=== PATIENT | female | born 1945 | race Caucasian/White ===

== ENCOUNTER → 2017-04-09 | Outpatient (CLI) | payer MEDICARE, OTHER ==
[2017-04-09 15:27] LABS: Sodium, Urine 95 mmol/L (20-110)
== END ==
LOC: LAB SRC 07:15 → LAB SHORT 07:15 → LAB FUT 04-08 11:35
PROVIDERS: Internal Medicine Endocrinology, Diabetes & Metabolism
DX: I10 Essential (primary) hypertension (principal); E24.1 Nelson's syndrome
CPT/HCPCS: 81050; 82088; 84300

== ENCOUNTER 2017-08-29 11:42 | Day surgery (SDC) | payer MEDICARE, OTHER | END 2017-08-29 22:43 | disposition home or self-care (01) | LOC: MOI MAM 11:42 | PROC: 0HBU3ZX Excision of Left Breast, Percutaneous Approach, Diagnostic (ICD-10-PCS; principal; 2017-08-29) | DX: D24.2 Benign neoplasm of left breast (principal); N60.92 Unspecified benign mammary dysplasia of left breast | CPT/HCPCS: 19081 ==

== ENCOUNTER 2019-07-08 06:20 | Day surgery (SDC) | payer MEDICARE, OTHER ==
[~2019-07-08] VITALS: Ht 165.1 cm; Wt 77.8 kg
[~2019-07-08 06:20] MED LIST: Aspir 8181 MG; BASAGLAR K100 UNIT/1; CARV25; LOSA50; METF500; OMEP20ER; SPIR25; Simvastatin40 MG; TRULICITY0.75 MG/0.
== END 2019-07-08 08:50 | disposition home or self-care (01) ==
LOC: ORSCSDS 06:20
PROVIDERS: Orthopaedic Surgery
PROC: 0LN80ZZ Release Left Hand Tendon, Open Approach (ICD-10-PCS; principal; 2019-07-08 07:30)
PROC: 01N50ZZ Release Median Nerve, Open Approach (ICD-10-PCS; principal; 2019-07-08 07:30)
DX: G56.03 Carpal tunnel syndrome, bilateral upper limbs (principal); M65.332 Trigger finger, left middle finger; E11.9 Type 2 diabetes mellitus without complications; I10 Essential (primary) hypertension; E78.5 Hyperlipidemia, unspecified; G47.33 Obstructive sleep apnea (adult) (pediatric); Z79.82 Long term (current) use of aspirin; Z79.84 Long term (current) use of oral hypoglycemic drugs; Z79.899 Other long term (current) drug therapy; Z87.891 Personal history of nicotine dependence
CPT/HCPCS: 82947; J0690; J1100; J2250; J2405; J2704; J2795; J3010; J7120

== ENCOUNTER → 2021-09-04 | Outpatient (CLI) | payer MEDICARE, OTHER ==
[2021-09-05 10:51] LABS: Stool Occult Bld Immuno 1 Positive (NEGATIVE)
== END | disposition home or self-care (01) ==
LOC: LAB SHORT 12:50 → LAB 12:50
PROVIDERS: Nurse Practitioner Family
DX: Z12.11 Encounter for screening for malignant neoplasm of colon (principal); Z12.12 Encounter for screening for malignant neoplasm of rectum
CPT/HCPCS: G0328

== ENCOUNTER 2022-12-19 08:27 | Day surgery (SDC) | payer MEDICARE, OTHER ==
[~2022-12-19] VITALS: Ht 165.1 cm; Wt 69.7 kg
[~2022-12-19 08:27] MED LIST changes: -BASAGLAR K100 UNIT/1; +BASAGLAR K100 UNIT/1 SC; -CARV25; +CARV25 PO; +Flonase 0.05% N16 GM; +LOSA50 PO; -METF500; +METF500 PO; -OMEP20ER; +OMEP20ER PO; +SPIR25 PO; -Simvastatin40 MG; +Simvastatin40 MG PO; -TRULICITY0.75 MG/0.; +TRULICITY1.5 MG/0.1 SC
[2022-12-19] MEDS ORDERED: BASAGLAR K100 UNIT/1 SC (09:58)
[2022-12-19] MEDS ORDERED: METF500 PO (09:59)
--- NOTE | 2022-12-19 10:57 | NUR ---
12/19/22 Bob7 Mari Baez A PILLOW UNDER HEAD AND KNEES, BOTH ARMS SECURED ON PADDED ARM BOARD, SEAT BELT IN PLACE AND SECURE.
[2022-12-19 12:43] VITALS: BP 123/64
--- NOTE | 2022-12-19 12:59 | NUR ---
12/19/22 1259 SUNIL SAMS DTR AND SISTER IN AT BEDSIDE. PT IN RECLINER.
== END 2022-12-19 13:50 | disposition home or self-care (01) ==
LOC: ORSCSDS 08:27
PROVIDERS: Surgery
PROC: 0HBT0ZZ Excision of Right Breast, Open Approach (ICD-10-PCS; principal; 2022-12-19 10:30)
DX: C50.211 Malignant neoplasm of upper-inner quadrant of right female breast (principal); I10 Essential (primary) hypertension; E11.9 Type 2 diabetes mellitus without complications; G47.33 Obstructive sleep apnea (adult) (pediatric); K21.9 Gastro-esophageal reflux disease without esophagitis; Z79.899 Other long term (current) drug therapy; Z79.84 Long term (current) use of oral hypoglycemic drugs; Z79.4 Long term (current) use of insulin
CPT/HCPCS: 38792; 82947; 88305; 88307; A9270; A9520; J0690; J1100; J1885; J2405; J2704; J2795; J3010; J7120; Q9968

== ENCOUNTER 2023-01-25 17:23 | Emergency (ER) | payer MEDICARE, OTHER ==
[~2023-01-25] VITALS: Ht 165.1 cm; Wt 67.1 kg
[2023-01-25 18:08] LABS: BASOPHILS ABSOLUTE AUTO 0.01 K/mm3 (0.00-0.23); BASOPHILS PERCENT AUTO 0 % (0-2); EOSINOPHILS ABSOLUTE AUTO 0.36 K/mm3 (0.00-0.68); EOSINOPHILS PERCENT AUTO 5 % (0-6); Hematocrit 32.3 % (33.0-51.0); Hemoglobin 10.6 g/dL (11.5-16.0); IMMATURE GRAN ABSOLUTE AUTO 0.02 K/mm3 (0.00-0.10); IMMATURE GRAN PERCENT AUTO 0 % (0-1); LYMPHOCYTES ABSOLUTE AUTO 1.68 K/mm3 (0.84-5.20); LYMPHOCYTES PERCENT AUTO 23 % (21-46); MONOCYTES ABSOLUTE AUTO 0.49 K/mm3 (0.16-1.47); MONOCYTES PERCENT AUTO 7 % (4-13); Mean Corpuscular HGB 29.5 pg (26.0-34.0); Mean Corpuscular HGB Conc 32.8 g/dL (31.5-36.5); Mean Corpuscular Volume 90 fL (80-100); Mean Platelet Volume 8.8 fL (9.1-12.4); NEUTROPHILS ABSOLUTE AUTO 4.63 K/mm3 (1.96-9.15); NEUTROPHILS PERCENT AUTO 64 % (41-73); Platelet Count 236 K/mm3 (150-400); RDW Coefficient Variation 12.6 % (11.7-14.2); RDW Standard Deviation 41.4 fL (35.1-46.3); Red Blood Cell Count 3.59 M/mm3 (3.80-5.20); White Blood Cell Count 7.19 K/mm3 (4.00-11.30)
[2023-01-25 18:46] LABS: Albumin, Blood 3.5 g/dL (3.4-5.0); Albumin/Globulin Ratio 0.9 (0.8-1.8); Bilirubin, Total 0.3 mg/dL (0.1-1.0); Bun/Creatinine Ratio 15.3 (12.0-20.0); Calcium, Blood 8.8 mg/dL (8.5-10.1); Creatinine, Blood 1.57 mg/dL (0.40-1.00); Globulin, Blood 3.8 g/dL (2.2-4.0); Total Protein, Blood 7.3 g/dL (6.4-8.2)
[2023-01-25 21:43] VITALS: BP 151/69
== END 2023-01-25 21:44 | disposition home or self-care (01) ==
LOC: ER 17:23
PROVIDERS: Emergency Medicine
DX: L76.34 Postprocedural seroma of skin and subcutaneous tissue following other procedure (principal); C50.911 Malignant neoplasm of unspecified site of right female breast; E11.9 Type 2 diabetes mellitus without complications; I10 Essential (primary) hypertension; E78.5 Hyperlipidemia, unspecified; Z88.8 Allergy status to other drugs, medicaments and biological substances; Z79.899 Other long term (current) drug therapy; Z79.4 Long term (current) use of insulin; Z79.84 Long term (current) use of oral hypoglycemic drugs
CPT/HCPCS: 80053; 85025; 99283

== ENCOUNTER 2023-02-20 04:46 | Day surgery (SDC) | payer MEDICARE, OTHER | END 2023-02-20 22:52 | disposition home or self-care (01) | LOC: WOUND 04:46 | DX: T81.31XS Disruption of external operation (surgical) wound, not elsewhere classified, sequela (principal); L03.313 Cellulitis of chest wall; Z90.11 Acquired absence of right breast and nipple; C50.911 Malignant neoplasm of unspecified site of right female breast; E08.39 Diabetes mellitus due to underlying condition with other diabetic ophthalmic complication; Z85.3 Personal history of malignant neoplasm of breast; Y83.8 Other surgical procedures as the cause of abnormal reaction of the patient, or of later complication, without mention of misadventure at the time of the procedure | CPT/HCPCS: A9270 ==

== ENCOUNTER 2023-02-28 02:25 | Day surgery (SDC) | payer MEDICARE, OTHER | END 2023-02-28 22:49 | disposition home or self-care (01) | LOC: WOUND 02:25 | DX: T81.31XS Disruption of external operation (surgical) wound, not elsewhere classified, sequela (principal); L03.313 Cellulitis of chest wall; C50.911 Malignant neoplasm of unspecified site of right female breast; E11.39 Type 2 diabetes mellitus with other diabetic ophthalmic complication; Z85.3 Personal history of malignant neoplasm of breast; Z90.11 Acquired absence of right breast and nipple | CPT/HCPCS: G0463 ==

== ENCOUNTER 2023-03-03 09:32 | Day surgery (SDC) | payer MEDICARE, OTHER | END 2023-03-03 23:01 | disposition home or self-care (01) | LOC: WOUND 09:32 | DX: T81.31XS Disruption of external operation (surgical) wound, not elsewhere classified, sequela (principal); L03.313 Cellulitis of chest wall; Z90.11 Acquired absence of right breast and nipple; Z85.3 Personal history of malignant neoplasm of breast; Y83.8 Other surgical procedures as the cause of abnormal reaction of the patient, or of later complication, without mention of misadventure at the time of the procedure | CPT/HCPCS: A9270 ==

== ENCOUNTER 2023-03-07 01:14 | Day surgery (SDC) | payer MEDICARE, OTHER | END 2023-03-07 22:52 | disposition home or self-care (01) | LOC: WOUND 01:14 | DX: T81.31XD Disruption of external operation (surgical) wound, not elsewhere classified, subsequent encounter (principal); L03.313 Cellulitis of chest wall; Z90.11 Acquired absence of right breast and nipple; C50.911 Malignant neoplasm of unspecified site of right female breast; E11.39 Type 2 diabetes mellitus with other diabetic ophthalmic complication; Z85.3 Personal history of malignant neoplasm of breast | CPT/HCPCS: A9270 ==

== ENCOUNTER 2023-03-10 01:57 | Day surgery (SDC) | payer MEDICARE, OTHER | END 2023-03-10 22:55 | disposition home or self-care (01) | LOC: WOUND 01:57 | DX: L03.313 Cellulitis of chest wall (principal); T81.31XS Disruption of external operation (surgical) wound, not elsewhere classified, sequela; Z90.11 Acquired absence of right breast and nipple; E08.39 Diabetes mellitus due to underlying condition with other diabetic ophthalmic complication; Z85.3 Personal history of malignant neoplasm of breast | CPT/HCPCS: G0463 ==

== ENCOUNTER 2023-03-14 00:25 | Day surgery (SDC) | payer MEDICARE, OTHER | END 2023-03-14 23:44 | disposition home or self-care (01) | LOC: WOUND | DX: T81.31XD Disruption of external operation (surgical) wound, not elsewhere classified, subsequent encounter (principal); L03.113 Cellulitis of right upper limb; Z90.11 Acquired absence of right breast and nipple; C50.911 Malignant neoplasm of unspecified site of right female breast; E08.39 Diabetes mellitus due to underlying condition with other diabetic ophthalmic complication; Z85.3 Personal history of malignant neoplasm of breast | CPT/HCPCS: G0463 ==

== ENCOUNTER 2023-03-21 01:19 | Day surgery (SDC) | payer MEDICARE, OTHER | END 2023-03-21 22:51 | disposition home or self-care (01) | LOC: WOUND 01:19 | DX: T81.31XS Disruption of external operation (surgical) wound, not elsewhere classified, sequela (principal); E11.9 Type 2 diabetes mellitus without complications; L03.313 Cellulitis of chest wall; Z85.3 Personal history of malignant neoplasm of breast; Z90.11 Acquired absence of right breast and nipple; Y83.8 Other surgical procedures as the cause of abnormal reaction of the patient, or of later complication, without mention of misadventure at the time of the procedure | CPT/HCPCS: G0463 ==

== ENCOUNTER → 2023-03-27 | Outpatient (CLI) | payer MEDICARE, OTHER ==
[2023-03-27 16:30] LABS: Percent Saturation 14.1 % (15.0-50.0)
== END ==
LOC: LAB 14:17 → LAB SHORT 14:17
PROVIDERS: Nurse Practitioner
DX: D64.9 Anemia, unspecified (principal); E53.8 Deficiency of other specified B group vitamins
CPT/HCPCS: 82607; 82728; 82746; 83540; 83550

== ENCOUNTER 2023-03-28 00:40 | Day surgery (SDC) | payer MEDICARE, OTHER | END 2023-03-28 23:08 | disposition home or self-care (01) | LOC: WOUND 00:40 | DX: T81.31XS Disruption of external operation (surgical) wound, not elsewhere classified, sequela (principal); L03.313 Cellulitis of chest wall; C50.911 Malignant neoplasm of unspecified site of right female breast; E11.39 Type 2 diabetes mellitus with other diabetic ophthalmic complication; Z85.3 Personal history of malignant neoplasm of breast; Z90.11 Acquired absence of right breast and nipple; Y83.8 Other surgical procedures as the cause of abnormal reaction of the patient, or of later complication, without mention of misadventure at the time of the procedure | CPT/HCPCS: G0463 ==

== ENCOUNTER 2023-04-04 01:24 | Day surgery (SDC) | payer MEDICARE, OTHER | END 2023-04-04 23:05 | disposition home or self-care (01) | LOC: WOUND 01:24 | DX: T81.31XS Disruption of external operation (surgical) wound, not elsewhere classified, sequela (principal); L03.313 Cellulitis of chest wall; C50.911 Malignant neoplasm of unspecified site of right female breast; E08.39 Diabetes mellitus due to underlying condition with other diabetic ophthalmic complication; Y83.8 Other surgical procedures as the cause of abnormal reaction of the patient, or of later complication, without mention of misadventure at the time of the procedure; Z85.3 Personal history of malignant neoplasm of breast; Z90.11 Acquired absence of right breast and nipple | CPT/HCPCS: G0463 ==

== ENCOUNTER 2023-06-13 01:56 | Day surgery (SDC) | payer MEDICARE, OTHER | END 2023-06-14 23:03 | disposition home or self-care (01) | LOC: WOUND 01:56 | DX: T81.31XS Disruption of external operation (surgical) wound, not elsewhere classified, sequela (principal); L03.313 Cellulitis of chest wall; C50.911 Malignant neoplasm of unspecified site of right female breast; E08.39 Diabetes mellitus due to underlying condition with other diabetic ophthalmic complication; Z90.11 Acquired absence of right breast and nipple; Z85.3 Personal history of malignant neoplasm of breast; Y83.8 Other surgical procedures as the cause of abnormal reaction of the patient, or of later complication, without mention of misadventure at the time of the procedure | CPT/HCPCS: A6213; G0463 ==

== ENCOUNTER 2023-06-27 05:10 | Day surgery (SDC) | payer MEDICARE, OTHER | END 2023-06-27 22:41 | disposition home or self-care (01) | LOC: WOUND 05:10 | DX: T81.31XS Disruption of external operation (surgical) wound, not elsewhere classified, sequela (principal); E11.9 Type 2 diabetes mellitus without complications; L03.313 Cellulitis of chest wall; C50.911 Malignant neoplasm of unspecified site of right female breast; Z85.3 Personal history of malignant neoplasm of breast; Z90.11 Acquired absence of right breast and nipple; Y83.8 Other surgical procedures as the cause of abnormal reaction of the patient, or of later complication, without mention of misadventure at the time of the procedure ==

== ENCOUNTER 2023-07-18 03:26 | Day surgery (SDC) | payer MEDICARE, OTHER | END 2023-07-18 23:04 | disposition home or self-care (01) | LOC: WOUND | DX: T81.31XS Disruption of external operation (surgical) wound, not elsewhere classified, sequela (principal); L03.313 Cellulitis of chest wall; Z90.11 Acquired absence of right breast and nipple; C50.911 Malignant neoplasm of unspecified site of right female breast; E11.39 Type 2 diabetes mellitus with other diabetic ophthalmic complication; Z85.3 Personal history of malignant neoplasm of breast; C50.919 Malignant neoplasm of unspecified site of unspecified female breast; Z79.899 Other long term (current) drug therapy; K59.00 Constipation, unspecified; E80.6 Other disorders of bilirubin metabolism; R74.9 Abnormal serum enzyme level, unspecified; K76.0 Fatty (change of) liver, not elsewhere classified; K76.89 Other specified diseases of liver; R16.1 Splenomegaly, not elsewhere classified; Z90.49 Acquired absence of other specified parts of digestive tract | CPT/HCPCS: 36415; 76700; 80053; 84439; 84443; 84481; 85025; A6213; G0463 ==

== ENCOUNTER 2023-08-15 03:15 | Day surgery (SDC) | payer MEDICARE, OTHER | END 2023-08-15 23:12 | disposition home or self-care (01) | LOC: WOUND | DX: T81.31XD Disruption of external operation (surgical) wound, not elsewhere classified, subsequent encounter (principal); L03.313 Cellulitis of chest wall; C50.911 Malignant neoplasm of unspecified site of right female breast; E08.39 Diabetes mellitus due to underlying condition with other diabetic ophthalmic complication; Z85.3 Personal history of malignant neoplasm of breast; Z90.11 Acquired absence of right breast and nipple; Y83.8 Other surgical procedures as the cause of abnormal reaction of the patient, or of later complication, without mention of misadventure at the time of the procedure | CPT/HCPCS: A6213; G0463 ==

== ENCOUNTER 2023-08-22 02:20 | Day surgery (SDC) | payer MEDICARE, OTHER | END 2023-08-22 23:15 | disposition home or self-care (01) | LOC: WOUND 02:20 | DX: T81.31XD Disruption of external operation (surgical) wound, not elsewhere classified, subsequent encounter (principal); E11.9 Type 2 diabetes mellitus without complications; L03.313 Cellulitis of chest wall; E11.39 Type 2 diabetes mellitus with other diabetic ophthalmic complication; Z85.3 Personal history of malignant neoplasm of breast; Z90.11 Acquired absence of right breast and nipple; Y83.8 Other surgical procedures as the cause of abnormal reaction of the patient, or of later complication, without mention of misadventure at the time of the procedure | CPT/HCPCS: G0463 ==

== ENCOUNTER 2023-08-29 02:48 | Day surgery (SDC) | payer MEDICARE, OTHER | END 2023-08-29 22:40 | disposition home or self-care (01) | LOC: WOUND 02:48 | DX: T81.31XD Disruption of external operation (surgical) wound, not elsewhere classified, subsequent encounter (principal); E11.9 Type 2 diabetes mellitus without complications; L03.313 Cellulitis of chest wall; C50.911 Malignant neoplasm of unspecified site of right female breast; Z85.3 Personal history of malignant neoplasm of breast; Z90.11 Acquired absence of right breast and nipple; Y83.8 Other surgical procedures as the cause of abnormal reaction of the patient, or of later complication, without mention of misadventure at the time of the procedure | CPT/HCPCS: G0463 ==

== ENCOUNTER 2023-09-12 01:55 | Day surgery (SDC) | payer MEDICARE, OTHER | END 2023-09-12 23:00 | disposition home or self-care (01) | LOC: WOUND 01:55 | DX: T81.31XD Disruption of external operation (surgical) wound, not elsewhere classified, subsequent encounter (principal); L03.313 Cellulitis of chest wall; C50.911 Malignant neoplasm of unspecified site of right female breast; Z90.11 Acquired absence of right breast and nipple; E08.39 Diabetes mellitus due to underlying condition with other diabetic ophthalmic complication | CPT/HCPCS: G0463 ==

== ENCOUNTER 2023-10-03 03:46 | Day surgery (SDC) | payer MEDICARE, OTHER | END 2023-10-03 22:39 | disposition home or self-care (01) | LOC: WOUND 03:46 | DX: T81.31XS Disruption of external operation (surgical) wound, not elsewhere classified, sequela (principal); L03.313 Cellulitis of chest wall; C50.911 Malignant neoplasm of unspecified site of right female breast; E08.39 Diabetes mellitus due to underlying condition with other diabetic ophthalmic complication; Z85.3 Personal history of malignant neoplasm of breast; Z90.11 Acquired absence of right breast and nipple; Y83.8 Other surgical procedures as the cause of abnormal reaction of the patient, or of later complication, without mention of misadventure at the time of the procedure | CPT/HCPCS: A6196; G0463 ==

== ENCOUNTER 2023-10-24 02:01 | Day surgery (SDC) | payer MEDICARE, OTHER | END 2023-10-24 23:30 | disposition home or self-care (01) | LOC: WOUND 02:01 | DX: T81.31XD Disruption of external operation (surgical) wound, not elsewhere classified, subsequent encounter (principal); Y83.8 Other surgical procedures as the cause of abnormal reaction of the patient, or of later complication, without mention of misadventure at the time of the procedure; L03.313 Cellulitis of chest wall; C50.911 Malignant neoplasm of unspecified site of right female breast; E08.39 Diabetes mellitus due to underlying condition with other diabetic ophthalmic complication; Z90.11 Acquired absence of right breast and nipple; Z85.3 Personal history of malignant neoplasm of breast | CPT/HCPCS: A6213; G0463 ==

== ENCOUNTER 2023-11-21 01:27 | Day surgery (SDC) | payer MEDICARE, OTHER | END 2023-11-22 02:58 | disposition home or self-care (01) | LOC: WOUND 01:27 | DX: T81.31XS Disruption of external operation (surgical) wound, not elsewhere classified, sequela (principal); I10 Essential (primary) hypertension; Z90.11 Acquired absence of right breast and nipple; Z85.3 Personal history of malignant neoplasm of breast | CPT/HCPCS: G0463 ==

== ENCOUNTER 2023-12-12 03:00 | Day surgery (SDC) | payer MEDICARE, OTHER | END 2023-12-12 23:33 | disposition home or self-care (01) | LOC: WOUND 03:00 | DX: T81.31XD Disruption of external operation (surgical) wound, not elsewhere classified, subsequent encounter (principal); L03.313 Cellulitis of chest wall; E08.39 Diabetes mellitus due to underlying condition with other diabetic ophthalmic complication; Z90.11 Acquired absence of right breast and nipple; Z85.3 Personal history of malignant neoplasm of breast; Y83.8 Other surgical procedures as the cause of abnormal reaction of the patient, or of later complication, without mention of misadventure at the time of the procedure | CPT/HCPCS: G0463 ==

== ENCOUNTER 2023-12-26 03:48 | Day surgery (SDC) | payer MEDICARE, OTHER | END 2023-12-27 03:00 | disposition home or self-care (01) | LOC: WOUND 03:48 | DX: T81.31XA Disruption of external operation (surgical) wound, not elsewhere classified, initial encounter (principal); L03.313 Cellulitis of chest wall; Z90.11 Acquired absence of right breast and nipple; C50.811 Malignant neoplasm of overlapping sites of right female breast; E08.39 Diabetes mellitus due to underlying condition with other diabetic ophthalmic complication; Z85.3 Personal history of malignant neoplasm of breast | CPT/HCPCS: G0463 ==

== ENCOUNTER 2024-01-23 05:48 | Day surgery (SDC) | payer MEDICARE, OTHER | END 2024-01-23 23:00 | disposition home or self-care (01) | LOC: WOUND 05:48 | DX: T81.31XD Disruption of external operation (surgical) wound, not elsewhere classified, subsequent encounter (principal); E11.9 Type 2 diabetes mellitus without complications; Z90.11 Acquired absence of right breast and nipple; Z85.3 Personal history of malignant neoplasm of breast | CPT/HCPCS: G0463 ==

== ENCOUNTER 2024-01-25 19:32 | Emergency (ER) | payer OTHER, MEDICARE ==
[~2024-01-25] VITALS: Ht 165.1 cm; Wt 69.0 kg
[2024-01-25 19:53] VITALS: BP 181/76
== END 2024-01-25 19:59 | disposition home or self-care (01) ==
LOC: ER 19:32
DX: Z04.1 Encounter for examination and observation following transport accident (principal); I10 Essential (primary) hypertension; E11.9 Type 2 diabetes mellitus without complications; G47.33 Obstructive sleep apnea (adult) (pediatric); E78.5 Hyperlipidemia, unspecified; Z88.8 Allergy status to other drugs, medicaments and biological substances; Z79.84 Long term (current) use of oral hypoglycemic drugs; Z79.85 Long-term (current) use of injectable non-insulin antidiabetic drugs; Z79.4 Long term (current) use of insulin; Z79.899 Other long term (current) drug therapy; V40.9XXA Unspecified car occupant injured in collision with pedestrian or animal in traffic accident, initial encounter
CPT/HCPCS: 99283

== ENCOUNTER 2024-05-04 07:01 | Day surgery (SDC) | payer MEDICARE, OTHER ==
[~2024-05-04] VITALS: Ht 165.1 cm; Wt 67.0 kg
--- NOTE | 2024-05-04 08:02 | NUR ---
05/04/[address] MESSAGED ABOUT GLP1 TAKEN 5 DAYS AGO/ PT HOLDING TO PROCEED BASED ON PLICY OF 7DAYS OFF GLP1. IV NOT STARTED UNTIL DECISION IS MADE. PT IS UPSET AND SAYS THAT NO ON E TOLD HER AND SHE WONT COME BACK TO DO PROCEDURE AGAIN
[2024-05-04] MEDS ORDERED: propofoL 50 ML IV ONE ×2 (08:10→09:56)
[2024-05-04] MEDS ORDERED: Lactated Ringer's 1,000 ML IV ONE ×3 (08:10→09:16)
[2024-05-04] MEDS ORDERED: Ondansetron HCl 2 MG / ML 2ML Vial ONE (09:56)
[2024-05-04] MEDS ORDERED: Glycopyrrolate 0.2 MG/ML 1MLVIAL ONE (09:56)
[2024-05-04 10:14] VITALS: BP 135/96
== END 2024-05-04 10:22 | disposition home or self-care (01) ==
LOC: ORSCSDS 07:01
PROVIDERS: Surgery
PROC: 0DBL8ZX Excision of Transverse Colon, Via Natural or Artificial Opening Endoscopic, Diagnostic (ICD-10-PCS; principal; 2024-05-04 08:30)
PROC: 3E0H8KZ Introduction of Other Diagnostic Substance into Lower GI, Via Natural or Artificial Opening Endoscopic (ICD-10-PCS; principal; 2024-05-04 08:30)
PROC: 0DBK8ZX Excision of Ascending Colon, Via Natural or Artificial Opening Endoscopic, Diagnostic (ICD-10-PCS; principal; 2024-05-04 08:30)
PROC: 0DBM8ZX Excision of Descending Colon, Via Natural or Artificial Opening Endoscopic, Diagnostic (ICD-10-PCS; principal; 2024-05-04 08:30)
DX: Z12.11 Encounter for screening for malignant neoplasm of colon (principal); Z80.0 Family history of malignant neoplasm of digestive organs; Z86.0100 Personal history of colon polyps, unspecified; R19.5 Other fecal abnormalities; D12.3 Benign neoplasm of transverse colon; D12.2 Benign neoplasm of ascending colon; D12.4 Benign neoplasm of descending colon; Z85.3 Personal history of malignant neoplasm of breast; Z79.899 Other long term (current) drug therapy; E11.9 Type 2 diabetes mellitus without complications; G47.33 Obstructive sleep apnea (adult) (pediatric); I10 Essential (primary) hypertension; E78.5 Hyperlipidemia, unspecified; Z87.891 Personal history of nicotine dependence; Z79.85 Long-term (current) use of injectable non-insulin antidiabetic drugs; Z79.84 Long term (current) use of oral hypoglycemic drugs; Z79.4 Long term (current) use of insulin
CPT/HCPCS: 82947; 88305; J2405; J2704; J7120

== ENCOUNTER → 2025-01-17 | Outpatient (CLI) | payer MEDICARE ==
[2025-01-17 14:52] LABS: Stool Occult Bld Immuno 1 Positive (NEGATIVE)
== END ==
LOC: LAB 09:00 → LAB SHORT 09:00
PROVIDERS: Nurse Practitioner Family
DX: D64.9 Anemia, unspecified (principal)
CPT/HCPCS: 82274

== ENCOUNTER → 2025-01-25 | Outpatient (CLI) | payer MEDICARE, OTHER | END | disposition home or self-care (01) | LOC: LAB 10:00 → LAB SHORT 10:00 | DX: B35.1 Tinea unguium (principal) | CPT/HCPCS: 87102 ==